=== PATIENT | female | born 1975 | race African-American/Black ===

== ENCOUNTER 2016-09-11 12:16 | Emergency (ER) | payer BC ==
[~2016-09-11] VITALS: Ht 165.1 cm; Wt 88.5 kg
[2016-09-11 13:25] VITALS: BP 116/70
[2016-09-11] MEDS ORDERED: PRED50TA PO (14:47)
[2016-09-11] MEDS ORDERED: PERM60CR2 TP (14:47)
--- NOTE | 2016-09-11 14:47 | PHYS DOC ---
Past Medical History Past Medical History: Other Additional Past Medical Histor: RA Past Surgical History: No Surgical History Alcohol Use: None Drug Use: None Adult General Chief Complaint Chief Complaint: ITCHING HPI HPI Patient is a 41 year old female who presents with scabies rash for a few days. Patient states her daughter was in the ED earlier today and was diagnosed with scabies and she would like to be treated as well. Review of Systems Review of Systems Constitutional: Denies fever or chills [] Eyes: Denies change in visual acuity, redness, or eye pain [] HENT: Denies nasal congestion or sore throat [] Musculoskeletal: Denies back pain or joint pain [] Integument: rash Neurologic: Denies headache, focal weakness or sensory changes [] Endocrine: Denies polyuria or polydipsia [] who presented with Allergies Allergies Allergies Coded Allergies Type Severity Reaction Last Updated Verified No Known Drug Allergies 09/11/16 No Physical Exam Physical Exam Constitutional: Well developed, well nourished, no acute distress, non-toxic appearance. [] HENT: Normocephalic, atraumatic, bilateral external ears normal, oropharynx moist, no oral exudates, nose normal. [] Skin: small small amount of erythematous papular rash in patient's chest. Back: No tenderness, no CVA tenderness. [] Extremities: No tenderness, no cyanosis, no clubbing, ROM intact, no edema. [] Neurologic: Alert and oriented X 3, normal motor function, normal sensory function, no focal deficits noted. [] Psychologic: Affect normal, judgement normal, mood normal. [] Current Patient Data Vital Signs Vital Signs Date Time Temp Pulse Resp B/P Pulse Ox O2 Delivery O2 Flow Rate FiO2 09/11/16 13:25 98.0 63 18 100 Room Air 98.0 EKG EKG [] Radiology/Procedures Radiology/Procedures [] Course & Med Decision Making Course & Med Decision Making Pertinent Labs and Imaging studies reviewed. (See chart for details) Patient is in the ED to be treated for scabies. Her daughter was in the ED today and she was treated for scabies. Patient has a rash on her chest as well. She was discharged with permethrin cream. Instructed to follow-up with her own PCP in 1-2 weeks. Provided instructions to take Benadryl as well. Dragon Disclaimer Dragon Disclaimer This electronic medical record was generated, in whole or in part, using a voice recognition dictation system. Departure Departure Impression: Primary Impression: Scabies Disposition: 01 HOME, SELF-CARE Condition: STABLE Referrals: SOHAIL BELL MD (PCP) Follow-up with your doctor in 2 weeks Patient Instructions: Scabies Additional Instructions: You were seen for scabies. Use the prescribed medicines as ordered. Follow-up with your doctor in 1-2 weeks. Take Benadryl every 4 hours as needed for itching. Scripts Prednisone 50 Mg Tablet1 Tab PO DAILY #5 TAB Prov:AURORA REGAN APRN 09/11/16 Permethrin 60 Gm Cream..g.1 Ray TP ONCE #60 GM Ref 1 Prov:AURORA REGAN APRN 09/11/16 AURORA REGAN APRN Sep 11, 2016 14:47
== END 2016-09-11 15:09 | disposition home or self-care (01) ==
LOC: ER 12:16
DX: B86 Scabies (principal); M06.9 Rheumatoid arthritis, unspecified
CPT/HCPCS: 99283

== ENCOUNTER → 2019-10-06 | Outpatient (CLI) | payer BC ==
[~2019-10-06] MED LIST: PERM60CR12 TP; PRED50TA PO
--- NOTE | 2019-10-06 12:13 | KCIC ---
AP and Lateral Views of the Chest 10/06/2019 12:00 AM Indication: History of right lower lobe pneumonia Comparison: None Findings: Minimal residual infiltrate may be present in the right lower lobe. No comparison is available for review. Heart size is normal. There is no evidence of pneumothorax or pleural effusion. No acute osseous abnormalities are identified. Impression: Possible minimal residual infiltrate in the right lower lobe Electronically signed by: Jovan Dempsey MD (10/06/2019 12:11 PM) [id number]
== END | disposition home or self-care (01) ==
LOC: KCIC 11:37
PROVIDERS: ATTEND Nurse Practitioner Gerontology
DX: R05 Cough (principal); J18.1 Lobar pneumonia, unspecified organism
CPT/HCPCS: 71046

== ENCOUNTER → 2019-11-03 | Outpatient (CLI) | payer BC ==
--- NOTE | 2019-11-03 12:11 | RAD ---
PA and lateral chest x-ray compared to similar exam dated 10/06/2023 follow-up of pneumonia. FINDINGS: No evident pneumonic infiltrate on the current examination. No pleural effusion or pneumothorax. Cardiomediastinum is grossly unremarkable. No significant osseous abnormalities. IMPRESSION: 1. No acute cardiopulmonary abnormality on the current examination. Electronically signed by: Korey Maddox MD (11/03/2019 12:09 PM) [id number]
== END | disposition home or self-care (01) ==
LOC: RAD 11:24
PROVIDERS: ATTEND Family Medicine
DX: Z87.01 Personal history of pneumonia (recurrent) (principal)
CPT/HCPCS: 71046